=== PATIENT | female | born 1990 | race Caucasian/White ===

== ENCOUNTER 2020-01-01 13:24 | Emergency (ER) | payer OTHER ==
--- NOTE | 2020-01-01 13:33 | ED ---
Psych HPI - General Stated Complaint: mental health Time Seen by Provider: 01/01/20 13:27 Source: RN notes reviewed, old records reviewed Mode of arrival: EMS Limitations: no limitations - History of Present Illness Initial Comments: This is a 29-year-old female poor story and patient profoundly refusing to answer questions, patient is significantly anxious agitated and aggressive patient's brought in by EMS from [place] we are unsure why patient is here patient is refusing to answer questions Complaint: altered mental status, other (Unsure of why patient is here in the ER) -: unknown Associated Psychiatric Symptoms: none Quality: constant Improves With: none Worsens With: none Associated Symptoms: denies other symptoms Treatments Prior to Arrival: placed on mental health hold - Related Data Allergies Allergy/AdvReac Type Severity Reaction Status Date / Time No Known Allergies Allergy Verified 01/01/20 14:06 Review of Systems ROS Statement: Those systems with pertinent positive or pertinent negative responses have been documented in the HPI. ROS Other: All systems not noted in ROS Statement are negative. General Exam General appearance: alert, in no apparent distress, anxious Head exam: Present: atraumatic, normocephalic, normal inspection Eye exam: Present: normal appearance, PERRL, EOMI. Absent: scleral icterus, conjunctival injection, periorbital swelling ENT exam: Present: normal exam, mucous membranes moist Neck exam: Present: normal inspection. Absent: tenderness, meningismus, lymph adenopathy Cardiovascular Exam: Present: regular rate, normal rhythm GI/Abdominal exam: Present: soft. Absent: distended, tenderness, guarding, rebound, rigid Extremities exam: Present: normal inspection, full ROM, normal capillary refill. Absent: tenderness, pedal edema, joint swelling, calf tenderness Back exam: Present: normal inspection Neurological exam: Present: alert, oriented X3, CN II-XII intact Psychiatric exam: Present: normal affect, normal mood Skin exam: Present: warm, dry, intact, normal color. Absent: rash Course Vital Signs 01/01/20 13:32 Temperature 98.2 F Pulse Rate 86 Respiratory 20 Rate Blood Pressure 128/73 O2 Sat by Pulse 98 Oximetry - Reevaluation(s) Reevaluation #1: 01/01/20 13:50 Medical records reviewed Reevaluation #2: 01/01/20 15:00 Thorough researches done to by patient's here in the emergency department. Patient was petition for psychiatric evaluation patient is evaluation by psychiatry here in the ER Medical Decision Making - Medical Decision Making 29 female DF for evaluation of stress reaction. No significant cause found here in the ER, no need for psychiatric admission and patient can be discharged home Disposition Clinical Impression: Stress reaction Disposition: HOME SELF-CARE Condition: Fair Instructions (If sedation given, give patient instructions): Stress (ED) Is patient prescribed a controlled substance at d/c from ED?: No Referrals: None,Stated [Primary Care Provider] - 1-2 days
--- NOTE | 2020-01-01 15:19 | ED ---
Medical Decision Making - Medical Decision Making 29 female documentation of restraints Disposition Clinical Impression: Stress reaction Disposition: HOME SELF-CARE Condition: Fair Instructions (If sedation given, give patient instructions): Stress (ED) Is patient prescribed a controlled substance at d/c from ED?: No Referrals: None,Stated [Primary Care Provider] - 1-2 days Procedures - Restraint - Face to Face Restraint Occurrence 1 Patient's Immediate Situation: Endangers self safety, Endangers others' safety, Endangers staff safety Patient's Reaction to the Intervention: Uncooperative, Angry, Anxious Patient's Medical & Behavioral Condition: Awake Need to Continue or Terminate Restraint or Seclusion: Continue Face to Face Eval of Restraint Date: 01/01/20 Face to Face Eval of Restraint Time: 13:25
[2020-01-01 16:20] VITALS: RESP 18
[2020-01-01 16:22] VITALS: BP 124/80; PULSE 84; TEMP 98.1
== END 2020-01-01 15:05 | disposition home or self-care (01) ==
LOC: EDBD → EC 13:24
DX: F43.9 Reaction to severe stress, unspecified (principal)
CPT/HCPCS: 82075; 99285